=== PATIENT | female | born 1950 | race Two or more races ===

== ENCOUNTER → 2022-07-06 | Emergency (ER) | payer OTHER ==
[~2022-07-06] VITALS: Ht 152.4 cm; Wt 39.9 kg
== END | disposition home or self-care (01) ==
LOC: ER 16:31
DX: R11.10 Vomiting, unspecified (principal); R53.81 Other malaise; E86.0 Dehydration; C56.9 Malignant neoplasm of unspecified ovary; C80.0 Disseminated malignant neoplasm, unspecified